=== PATIENT | male | born 2000 | race Caucasian/White ===

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

== ENCOUNTER → 2020-05-27 | Day surgery (SDC) | payer OTHER | LOC: MSO 07:51 | DX: K21.00 Gastro-esophageal reflux disease with esophagitis, without bleeding (principal); F90.1 Attention-deficit hyperactivity disorder, predominantly hyperactive type | CPT/HCPCS: 00731; J2704; J7120 ==